=== PATIENT | female | born 1995 | race Caucasian/White ===

== ENCOUNTER → 2018-08-03 | Outpatient (CLI) | payer OTHER | LOC: BMCIMAGING 16:28 | PROVIDERS: ATTEND Internal Medicine | DX: J40 Bronchitis, not specified as acute or chronic (principal) | CPT/HCPCS: 71101-PO ==

== ENCOUNTER 2018-08-09 16:42 | Emergency (ER) | payer OTHER ==
--- NOTE | 2018-08-09 17:06 | EDPHY ---
H & P Stated Complaint: rib pain Time Seen by Provider: 08/09/18 16:51 HPI/ROS: CHIEF COMPLAINT: Left rib pain HISTORY OF PRESENT ILLNESS: 23-year-old otherwise healthy female complaining of 2 weeks of URI symptoms, completed a course of antibiotics few days ago but notes that recently she had a coughing fit and felt immediate pain in her left lower ribs. She was seen by her PCP with negative chest x-ray, continue symptoms with seen again a few days later had another chest x-ray which remained negative. She comes to the ER noting she has continued pain and is informed that she spoke with PCP recommend that she may necessitate CT imaging of her chest. She does complain of pleuritic chest pain. She denies dyspnea. Denies back or flank pain. Denies family or personal history of venous thromboembolic disorder. She does not smoke. She does have a history of exogenous estrogen use (oral contraceptives). She denies: Abdominal pain, rash, urinary abnormality PRIMARY CARE PROVIDER: Dr. Chula Cardoza REVIEW OF SYSTEMS: 10 systems reviewed and negative with the exception of the elements mentioned in the history of present illness PAST MEDICAL & SURGICAL HISTORY: No pertinent medical or surgical history . No VTE history. SOCIAL HISTORY:Nonsmoker FAMILY HISTORY: no family history of VTE. PHYSICAL EXAM (Prior to examination, patient consented to physical exam, hands were washed and my usual and customary physical exam procedures followed) 1) GENERAL: Well-developed, well-nourished, alert and oriented. Appears uncomfortable she is asked to breathe. 2) HEAD: Normocephalic, atraumatic 3) HEENT: Pupils equal, round, reactive to light bilaterally. Sclera anicteric. Nasopharynx, oropharynx, clear, no lesions. MoistDry mucous membranes. Ears bilaterally with normal tympanic membranes. 4) NECK: Full range of motion, no meningeal signs. 5) LUNGS: Clear auscultation bilaterally, tender to palpation left lower ribs middle and anterior axillary line with no visible trauma. No crepitus.. 6) HEART: Regular rate and rhythm, no murmur, no heave, no gallop. 7) ABDOMEN: No guarding, tender to palpation left upper quadrant in the general location of the spleen no focal tenderness, negative McBurney's, negative Delacruz 's, negative Rovsing's, negative peritoneal sign, 8) MUSCULOSKELETAL: Moving all extremities, no focal areas of tenderness, no obvious trauma. No peripheral edema or discoloration. 9) BACK: No CVA tenderness, no midline vertebral tenderness, no fluctuance, no step-off, no obvious trauma, no visual or palpable abnormality. 10) SKIN: No rash, no petechiae. 11) Psychiatric: Patient is oriented X 3, there is no agitation. DIFFERENTIAL DIAGNOSIS: In no particular order including but not limited to rib fracture, rib contusion, splenic injury, pulmonary embolus, muscle strain - Personal History Current Tetanus/Diphtheria Vaccine: Yes Current Tetanus Diphtheria and Acellular Pertussis (TDAP): Yes - Medical/Surgical History Hx Asthma: No Hx Chronic Respiratory Disease: No Hx Diabetes: No Hx Cardiac Disease: No Hx Renal Disease: No Hx Cirrhosis: No Hx Alcoholism: No Hx HIV/AIDS: No Hx Splenectomy or Spleen Trauma: No Other PMH: denies - Social History Smoking Status: Never smoked Constitutional: Initial Vital Signs Temperature (C) 37.1 C 08/09/18 16:47 Heart Rate 107 H 08/09/18 16:47 Respiratory Rate 16 08/09/18 16:47 Blood Pressure 157/97 H 08/09/18 16:47 O2 Sat (%) 96 08/09/18 16:47 O2 Delivery Mode Room Air Allergies/Adverse Reactions: minocycline [From Solodyn] Allergy (Verified 08/09/18 16:46) Home Medications: Medication Instructions Recorded Bcp 08/09/18 Meloxicam 08/09/18 Tylenol 08/09/18 oxyCODONE/APAP 5/325 [Percocet 1 tab PO Q6 #10 tab 08/09/18 5/325] Medical Decision Making - Diagnostics Imaging Results: Imaging Impressions Chest/Thorax CTA 08/09/18 18:01 Impression: 1. No evidence of pulmonary embolus using CT protocol. 2. Normal CT chest. Findings discussed with Monica JAMISON at 18:37 hour, 08/09/2018. Images reviewed myself ED Course/Re-evaluation: 5:02 p.m.: The patient describes to me 10 days of left lower rib pain with respiration, palpation after coughing fit. She has already had 2 chest x-rays with which have been negative for definitive fracture or focal infiltrate. She is complaining of continued pain left lower quadrant is only tender to palpation in the left anterior and mid axillary line lower ribs in the general location of her spleen as well. Do not appreciate an obvious splenomegaly. We talked about options at this time. Informed patient that at this time I do not think that repeat chest x-rays indicated she has had 1 as recently as approximately 5 days ago which was negative and if at fracture was seen or not the initial treatment remain the same, notably supportive care. However, she indicates that her PCP told her that she may necessitate a CT scan. I have reviewed her laboratory studies and she has a non negative perc score, she is tachycardic. Given my moderate pretest suspicion for PE I think a D-dimer is appropriate at this time before moving directly to CT imaging. 6:02 p.m.: Re-evaluation. Patient has a negative D-dimer. We discussed my moderate pretest suspicion for PE combined with a negative D-dimer which I think adequately excludes pulmonary embolus. We discussed the indications risks benefits of CT imaging. The patient is concerned that she may have fracture in this area and she would like CT imaging of the chest. I believe her to have decision-making capacity. 6:37 p.m.: Imaging is negative per Radiology interpretation. I specifically inquired with radiologist about any evidence of splenic injury, any signs of rib fracture. Normal study per Radiology interpretation. Reviewed the images myself. 6:58 p.m.: Re-evaluation, patient appears comfortable, she did experience an episode of emesis after CT imaging was not able tolerate oral intake. She is working on her computer and appears comfortable. Discussed her imaging results showin no PE, no fracture. Plan will be discharged with incentive spirometer, analgesia, close follow-up with primary care provider, usual and customary respiratory precautions instructions. She feels comfortable being discharged. Care of patient under supervision of secondary supervising physician Dr Juarez . - Data Points Laboratory Results: Laboratory Results 08/09/18 17:05 08/09/18 17:05 08/09/18 08/09/18 08/09/18 17:05 17:05 17:05 WBC RBC Hgb Hct MCV MCH MCHC RDW Plt Count MPV Neut % (Auto) Lymph % (Auto) [place] % (Auto) Eos % (Auto) Baso % (Auto) Nucleat RBC Rel Count Absolute Neuts (auto) Absolute Lymphs (auto) Absolute Monos (auto) Absolute Eos (auto) Absolute Basos (auto) Absolute Nucleated RBC Immature Gran % Immature Gran # D-Dimer 0.29 ug/mLFEU ug/mLFEU (0.00-0.50) Sodium 141 mEq/L mEq/L (135-145) Potassium 4.2 mEq/L mEq/L (3.5-5.2) Chloride 110 mEq/L mEq/L (97-110) Carbon Dioxide 17 mEq/l L mEq/l (22-31) Anion Gap 14 mEq/L mEq/L (6-14) BUN 16 mg/dL mg/dL (7-23) Creatinine 0.7 mg/dL mg/dL (0.6-1.0) Estimated GFR > 60 Glucose 101 mg/dL H mg/dL (70-100) Calcium 10.4 mg/dL mg/dL (8.5-10.4) Beta HCG, Qual NEGATIVE Monoscreen NEGATIVE (NEGATIVE) 08/09/18 17:05 WBC 10.73 10^3/uL H 10^3/uL (3.80-9.50) RBC 4.89 10^6/uL 10^6/uL (4.18-5.33) Hgb 14.6 g/dL g/dL (12.6-16.3) Hct 41.2 % % (38.0-47.0) MCV 84.3 fL fL (81.5-99.8) MCH 29.9 pg pg (27.9-34.1) MCHC 35.4 g/dL g/dL (32.4-36.7) RDW 12.1 % % (11.5-15.2) Plt Count 391 10^3/uL 10^3/uL (150-400) MPV 8.9 fL fL (8.7-11.7) Neut % (Auto) 77.5 % H % (39.3-74.2) Lymph % (Auto) 16.6 % % (15.0-45.0) [place] % (Auto) 4.1 % L % (4.5-13.0) Eos % (Auto) 1.1 % % (0.6-7.6) Baso % (Auto) 0.4 % % (0.3-1.7) Nucleat RBC Rel Count 0.0 % % (0.0-0.2) Absolute Neuts (auto) 8.32 10^3/uL H 10^3/uL (1.70-6.50) Absolute Lymphs (auto) 1.78 10^3/uL 10^3/uL (1.00-3.00) Absolute Monos (auto) 0.44 10^3/uL 10^3/uL (0.30-0.80) Absolute Eos (auto) 0.12 10^3/uL 10^3/uL (0.03-0.40) Absolute Basos (auto) 0.04 10^3/uL 10^3/uL (0.02-0.10) Absolute Nucleated RBC 0.00 10^3/uL 10^3/uL (0-0.01) Immature Gran % 0.3 % % (0.0-1.1) Immature Gran # 0.03 10^3/uL 10^3/uL (0.00-0.10) D-Dimer Sodium Potassium Chloride Carbon Dioxide Anion Gap BUN Creatinine Estimated GFR Glucose Calcium Beta HCG, Qual Monoscreen Departure - Departure Disposition: Home, Routine, Self-Care Clinical Impression: Chest pain Qualifiers: Chest pain type: chest pain on breathing Qualified Code(s): R07.1 - Chest pain on breathing; R07.81 - Pleurodynia Condition: Good Instructions: Oxycodone/Acetaminophen (By mouth), Chest Pain (ED) Additional Instructions: Use your incentive spirometer every hour while awake. Return to the ER if you develop new or worsening pain or shortness of breath. Referrals: Chula Cardoza MD [Primary Care Provider] - 1-2 days without fail Prescriptions: oxyCODONE/APAP 5/325 [Percocet 5/325] 1 tab PO Q6 #10 tab
[2018-08-09 17:15] LABS: PLATELET COUNT 391 10^3/uL (150-400)
[2018-08-09] MEDS ORDERED: IOPAMIDOL (ISOVUE 370) 100 ML BTL IV ONE ×2 (18:05→18:06)
[2018-08-09 19:51] VITALS: BP 113/84
== END 2018-08-09 19:50 | disposition home or self-care (01) ==
DX: R07.1 Chest pain on breathing (principal); R07.81 Pleurodynia
CPT/HCPCS: Q9967